=== PATIENT | female | born 1945 | race Two or more races ===

== ENCOUNTER 2018-05-08 02:11 | Emergency (ER) | payer OTHER ==
[2018-05-08] MEDS: morphine 4 MG/ML VIAL IV (02:44)
[2018-05-08] MEDS: SOD CHLORIDE 0.9% 500 ML IV (02:44)
[2018-05-08] MEDS: ONDANSETRON 4 MG INJ IV (02:44)
[2018-05-08 02:47] LABS: ADD MAN DIFF? NO
[2018-05-08 02:48] LABS: ABNORMAL IP MESSAGE 1; BASOPHIL # 0.1 10^3/ul (0.0-0.1); BASOPHILS % 0.3 % (0.0-2.0); LYMPHOCYTES # 0.6 10^3/ul (0.8-2.9); LYMPHOCYTES % 2.8 % (15.0-51.0); MEAN CORPUSCULAR HEMOGLOBIN 29.4 pg (29.0-33.0); MEAN CORPUSCULAR HGB CONC 32.6 g/dl (32.0-37.0); MEAN CORPUSCULAR VOLUME 90.2 fl (82.0-101.0); MEAN PLATELET VOLUME 9.6 fl (7.4-10.4); MONOCYTE # 1.5 10^3/ul (0.3-0.9); MONOCYTES % 7.7 % (0.0-11.0); NEUTROPHIL # 17.4 10^3/ul (1.6-7.5); NEUTROPHILS % 88.6 % (39.0-77.0); PLATELET COUNT 291 10^3/UL (140-415); RED CELL DISTRIBUTION WIDTH 13.4 % (11.5-14.5)
[2018-05-08 02:48] LABS: WHITE BLOOD COUNT 19.7 10^3/ul (4.8-10.8)
[2018-05-08 02:52] LABS: POSITIVE DIFF @See below
[2018-05-08 03:10] LABS: ALANINE AMINOTRANSFERASE 12 IU/L (13-69); ALBUMIN 4.1 g/dl (3.3-4.9); ALBUMIN/GLOBULIN RATIO 1.17; ALKALINE PHOSPHATASE 100 IU/L (42-121); ANION GAP 18 (8-16); ASPARTATE AMINO TRANSFERASE 19 IU/L (15-46); BILIRUBIN,INDIRECT 0.4 mg/dl (0-1.1); BILIRUBIN,TOTAL 0.4 mg/dl (0.2-1.3); BLOOD UREA NITROGEN 26 mg/dl (7-20); CALCIUM 9.6 mg/dl (8.4-10.2); CARBON DIOXIDE 26 mmol/L (21-31); CHLORIDE 98 mmol/L (97-110); CREATININE 0.87 mg/dl (0.44-1.00); GLUCOSE 222 mg/dl (70-220); LIPASE 64 U/L (23-300); POTASSIUM 4.8 mmol/L (3.5-5.1); SODIUM 137 mmol/L (135-144); TOTAL PROTEIN 7.6 g/dl (6.1-8.1)
[2018-05-08 03:21] LABS: TROPONIN-I < 0.010 ng/ml (0.000-0.120)
[2018-05-08] MEDS ORDERED: ACETAMINOPHEN 325 MG TAB (04:52)
[2018-05-08] MEDS: ACETAMINOPHEN 325 MG TAB PO (05:01)
[2018-05-08] MEDS: SOD CHLORIDE 0.9% 1,000 ML IV (05:02)
[2018-05-08] MEDS: metroNIDAZOLE 500 MG/NS (PMX) 100 ML IVPB (05:04)
[2018-05-08] MEDS: PIPER-TAZO 3.375 GM IV (PMX) 100 ML IVPB (05:04)
[2018-05-08] MEDS: SODIUM CHLORIDE 0.9% 1L BAG IV* (06:50)
[2018-05-08 07:12] LABS: ADD UMIC YES; UR ASCORBIC ACID NEGATIVE (NEGATIVE); UR BILIRUBIN (Dip) NEGATIVE (NEGATIVE); UR BLOOD (Dip) NEGATIVE (NEGATIVE); UR CLARITY CLEAR (CLEAR); UR COLOR YELLOW (YELLOW); UR GLUCOSE (Dip) NEGATIVE (NEGATIVE); UR KETONES (Dip) NEGATIVE (NEGATIVE); UR LEUKOCYTE ESTERASE (Dip) TRACE Leu/ul (NEGATIVE); UR NITRITE (Dip) NEGATIVE (NEGATIVE); UR RBC 0 /HPF (0-5); UR SPECIFIC GRAVITY (Dip) 1.011 (1.003-1.030); UR TOTAL PROTEIN (Dip) NEGATIVE (NEGATIVE); UR UROBILINOGEN (Dip) NEGATIVE (NEGATIVE); UR WBC 4 /HPF (0-5)
[2018-05-08 07:24] LABS: LACTIC ACID 1.4 mmol/L (0.5-2.0)
== END 2018-05-08 07:39 | disposition short-term general hospital (02) ==
LOC: E/R 07:39
DX: K52.9 Noninfective gastroenteritis and colitis, unspecified (principal); I10 Essential (primary) hypertension; E11.9 Type 2 diabetes mellitus without complications
CPT/HCPCS: 36415; 71045; 74176; 80053; 81001; 83605; 83690; 84484; 85025; 87040; 93005; 96361; 96365; 96368; 96375; 99285-25